=== PATIENT | female | born 1985 | race African-American/Black ===

== ENCOUNTER 2018-11-30 13:30 | Emergency (ER) | payer MEDICAID ==
[~2018-11-30] VITALS: Ht 175.3 cm; Wt 82.0 kg
[2018-11-30 15:50] LABS: CLARITY URINE CLEAR (CLEAR); COLOR URINE YELLOW (YELLOW); KETONES URINE NEGATIVE (NEGATIVE); LEUKOCYTE ESTERASE URINE NEGATIVE (NEGATIVE); NITRITE URINE NEGATIVE (NEGATIVE); OCCULT BLOOD URINE NEGATIVE (NEGATIVE); PH URINE 6.5 (4.5-8.0); PROTEIN URINE 1+ (NEGATIVE); UROBILINOGEN URINE 0.2 E.U./dL (0.2-1.0)
[2018-11-30] MEDS ORDERED: FLUCONAZOLE 100MG TABLET PO ONE (16:30)
[2018-11-30 18:15] VITALS: BP 125/83
== END 2018-11-30 18:18 | disposition home or self-care (01) ==
LOC: ER 13:30
DX: N89.8 Other specified noninflammatory disorders of vagina (principal); R03.0 Elevated blood-pressure reading, without diagnosis of hypertension; Z88.0 Allergy status to penicillin
CPT/HCPCS: 81025; 99283